=== PATIENT | female | born 1970 | race Caucasian/White ===

== ENCOUNTER 2018-03-16 23:10 | Emergency (ER) | payer MEDICAID ==
[~2018-03-16] VITALS: Ht 167.6 cm; Wt 85.5 kg
[2018-03-16 23:32] VITALS: Ht 167.6 cm; Wt 85.5 kg
[2018-03-16] MEDS ORDERED: ZOFRAN ODT4 MG/UDTAB PO (23:33)
[2018-03-16] MEDS ORDERED: LINZESS290 MCG PO (23:33)
[2018-03-16] MEDS ORDERED: PHENERGAN25 M1 PO (23:33)
[2018-03-16] MEDS ORDERED: AMITIZA24 MCG PO (23:33)
[2018-03-16] MEDS ORDERED: ZOLOFT50 MG PO (23:34)
[2018-03-16] MEDS ORDERED: CHRONULAC30 ML PO (23:34)
[2018-03-16] MEDS ORDERED: SORBITOL4000 ML PO (23:34)
[2018-03-16] MEDS ORDERED: KLONOPIN0.5 MG PO (23:34)
[2018-03-17 00:08] LABS: ALBUMIN 4.3 g/dL (3.4-5.0); ANION GAP 17.7 mmol/L (8-16); BILIRUBIN - TOTAL 0.76 mg/dL (0.2-1.3); CALCIUM 9.6 mg/dL (8.5-10.1); CARBON DIOXIDE 23.8 mmol/L (21.0-32.0); MAGNESIUM - SERUM 1.8 mg/dL (1.8-2.4); POTASSIUM - SERUM 3.5 mmol/L (3.5-5.1); PROTEIN - SERUM 8.9 g/dL (6.4-8.2)
[2018-03-17 00:16] LABS: BASOPHILS 0.3 % (0-2); EOSINOPHILS 3.5 % (0-7); HEMATOCRIT 42.1 % (36.0-48.0); HEMOGLOBIN 14.9 g/dL (12-16); IMMATURE GRANULOCYTES 0.4 % (0-5); LYMPHOCYTES 34.2 % (15-50); MCH 30.8 pg (26.0-34.0); MCHC 35.4 g/dL (31.0-37.0); MCV 87.2 fL (80.0-100.0); MEAN PLATELET VOLUME 10.8 fL (7.4-10.4); MONOCYTES 7.5 % (2-11); NEUTROPHILS 54.1 % (40-80); PLATELET COUNT 643 10x3/uL (130-400); RBC 4.83 10x6/uL (4.00-5.40); RDW 16.3 % (11.5-14.5); WBC 13.4 10x3/uL (4.8-10.8)
[2018-03-17 00:20] LABS: APPEARANCE SL CLDY (CLEAR); BILIRUBIN NEGATIVE (NEGATIVE); COLOR YELLOW (YELLOW); GLUCOSE NEGATIVE (NEGATIVE); KETONE SMALL mg/dL (NEGATIVE); NITRITE POSITIVE (NEGATIVE); PROTEIN TRACE mg/dL (NEGATIVE); SPECIFIC GRAVITY 1.025 (1.005-1.020); UDS - AMPHET NEGATIVE QUAL (NEGATIVE); UDS - BARB NEGATIVE QUAL (NEGATIVE); UDS - BENZO POSITIVE QUAL (NEGATIVE); UDS - COCAINE NEGATIVE QUAL (NEGATIVE); UDS - OPIATE NEGATIVE QUAL (NEGATIVE); UDS - PCP NEGATIVE QUAL (NEGATIVE); UDS - THC POSITIVE QUAL (NEGATIVE); UROBILINOGEN NORMAL (NORMAL)
[2018-03-17 00:21] LABS: BACTERIA MANY /hpf (NONE SEEN); EPITHELIAL CELLS 0-5 /hpf (0-5); MUCUS <1+ /lpf (NONE SEEN); RED CELLS - URINE 0-5 /hpf (0-5); WHITE CELLS - URINE 0-5 /hpf (0-5)
[2018-03-17 07:01] VITALS: BP 146/87
== END 2018-03-17 08:13 | disposition short-term general hospital (02) ==
LOC: D.ER 23:10
PROVIDERS: Family Medicine
DX: R45.851 Suicidal ideations (principal); N39.0 Urinary tract infection, site not specified; K21.9 Gastro-esophageal reflux disease without esophagitis

== ENCOUNTER 2020-10-08 11:02 | Emergency (ER) | payer MEDICAID ==
[~2020-10-08] VITALS: Ht 167.6 cm; Wt 100.0 kg
[~2020-10-08 11:02] MED LIST: AMITIZA24 MCG PO; CHRONULAC30 ML PO; KLONOPIN0.5 MG PO; LINZESS290 MCG PO; PHENERGAN25 M1 PO; SORBITOL4000 ML PO; ZOFRAN ODT4 MG/UDTAB PO; ZOLOFT50 MG PO
[2020-10-08 11:06] VITALS: Ht 167.6 cm; Wt 100.0 kg
[2020-10-08] MEDS ORDERED: PHENERGAN25 M1 PO (11:11)
[2020-10-08] MEDS ORDERED: PEPCID40 MG PO (11:12)
[2020-10-08] MEDS ORDERED: PROTONIX40 MG PO (11:12)
[2020-10-08] MEDS ORDERED: SCOPOLAMINE1 EACH TRANSDERM (11:12)
[2020-10-08] MEDS ORDERED: TRAZODONE HCL100 MG PO (11:13)
[2020-10-08] MEDS ORDERED: CYANOCOBAL1000 MCG/4 SC (11:13)
[2020-10-08 11:47] LABS: BILIRUBIN NEGATIVE (NEGATIVE); KETONE NEGATIVE (NEGATIVE); NITRITE NEGATIVE (NEGATIVE); UROBILINOGEN NORMAL mg/dL (< 2)
[2020-10-08] MEDS ORDERED: METHOCARBAMOL500 MG PO (12:40)
[2020-10-08 12:52] VITALS: BP 144/86
== END 2020-10-08 12:52 | disposition home or self-care (01) ==
LOC: D.ER 11:02
PROVIDERS: Emergency Medicine
DX: M54.5 Low back pain (principal); K21.9 Gastro-esophageal reflux disease without esophagitis